=== PATIENT | male | born 1940 | race Caucasian/White ===

== ENCOUNTER 2018-04-22 13:12 | Inpatient (IN) | payer MEDICARE ==
[2018-04-21 09:43] VITALS: BMI 27.2
[~2018-04-22 13:12] MED LIST: DEXAMETHASONE SOD PHOSPHATE 10 MG/ML 1 ML VIAL IV ONE; LIDOCAINE 1% 20 ML VIAL (10MG/ML) FOR IV START INTRADERMA PRN; MIDAZOLAM 2 MG/2 ML VIAL IV PRN; ONDANSETRON 4 MG/2 ML VIAL IVP ONE; SODIUM CHLORIDE 0.9% 1,000 ML in EMPTY BAG 1 BAG IV ONE; ceFAZolin IN SWFI 2 GM/20 ML SYRINGE IVP ONE; fentaNYL (PF) 50 MCG/ML 2 ML AMP IV PRN
[2018-04-22 14:04] LABS: Glucose,Whole Blood 115 mg/dL (75-99)
[2018-04-22 14:15] LABS: Basophils % (A) 0 %; Eosinophils # (A) 0.2 k/uL (0-0.7); Eosinophils % (A) 4 %; HCT 42.1 % (39.0-53.0); HGB 14.3 gm/dL (13.0-17.5); Lymphocytes # (A) 1.1 k/uL (1.0-4.8); Lymphocytes % (A) 17 %; MCH 30.9 pg (25.0-35.0); MCHC 33.9 g/dL (31.0-37.0); MCV 91.2 fL (80.0-100.0); Mean Platelet Volume 6.5; Monocytes # (A) 0.5 k/uL (0-1.0); Monocytes % (A) 7 %; Neutrophils # (A) 4.5 k/uL (1.3-7.7); Neutrophils % (A) 70 %; Platelet Count 234 k/uL (150-450); RBC 4.62 m/uL (4.30-5.90); RDW 13.1 % (11.5-15.5); WBC 6.5 k/uL (3.8-10.6)
[2018-04-22 14:29] LABS: Anion Gap 9 mmol/L; Blood Urea Nitrogen 12 mg/dL (9-20); Calcium 9.2 mg/dL (8.4-10.2); Carbon Dioxide 24 mmol/L (22-30); Chloride 102 mmol/L (98-107); Glucose 112 mg/dL (74-99); Potassium 4.1 mmol/L (3.5-5.1); Sodium 135 mmol/L (137-145)
[2018-04-22] MEDS ORDERED: PROTAMINE SULFATE 10 MG/ML 5 ML VIAL IV ONE (14:42)
[2018-04-22] MEDS ORDERED: MIDAZOLAM 2 MG/2 ML VIAL ONE (14:42)
[2018-04-22] MEDS ORDERED: VECURONIUM 10 MG VIAL IV ONE (14:42)
[2018-04-22] MEDS ORDERED: LIDOCAINE 1% INJ 10MG/ML (20 ML MDV) ONE (14:42)
[2018-04-22] MEDS ORDERED: fentaNYL (PF) 50 MCG/ML 2 ML AMP ONE (14:42)
[2018-04-22] MEDS ORDERED: PROPOFOL 10 MG/ML 20 ML VIAL IV ONE (14:42)
[2018-04-22] MEDS ORDERED: NEOSTIGMINE 1 MG/ML 10 ML VIAL ONE (14:42)
[2018-04-22] MEDS ORDERED: SUCCINYLCHOLINE CHLORIDE 100 MG/5 ML SYR IV ONE (14:42)
[2018-04-22] MEDS ORDERED: GLYCOPYRROLATE 0.2 MG/ML 2 ML VIAL ONE (14:42)
--- NOTE | 2018-04-22 14:51 | P.GSHP ---
History of Present Illness H&P Date: 04/22/18 Chief Complaint: AAA 77-year-old gentleman who originally presented to the office secondary to increased size in his in for renal abdominal aortic aneurysm to greater than 5-1 /2 cm. He presents today for endovascular aortic repair. He denies any abdominal pain, back pain, lower extremity discomfort with ambulation or at rest , fevers, chills, chest pain or shortness of breath. - Review of Systems All systems: negative Past Medical History Past Medical History: Cancer, Diabetes Mellitus, Hyperlipidemia, Hypertension, Prostate Disorder Additional Past Medical History / Comment(s): hx colon cancer, abdominal aortic aneursym History of Any Multi-Drug Resistant Organisms: None Reported Past Surgical History: Bowel Resection Additional Past Surgical History / Comment(s): bowel resection for bowel cancer , eye surgery for macular hole, rt eye cataract surgery Past Anesthesia/Blood Transfusion Reactions: No Reported Reaction Smoking Status: Former smoker - Past Family History Mother Family Medical History: No Reported History Medications and Allergies Home Medications Medication Instructions Recorded Confirmed Type Aspirin [Adult Low Dose Aspirin EC] 81 mg PO DAILY 04/21/18 04/22/18 History Cyanocobalamin (Vitamin B-12) 1,500 mcg PO DAILY 04/21/18 04/22/18 History [Vitamin B-12] Ferrous Sulfate [Feosol] 325 mg PO DAILY 04/21/18 04/22/18 History Lisinopril [Zestril] 10 mg PO DAILY 04/21/18 04/22/18 History Magnesium With Zinc 1 tab PO DAILY 04/21/18 04/22/18 History Metoprolol Succinate [Toprol Xl] 50 mg PO DAILY 04/21/18 04/22/18 History Multivitamins, Thera [Multivitamin 1 tab PO DAILY 04/21/18 04/22/18 History (formulary)] [place]-3 Fatty Acids [[place]-3] 1,000 mg PO DAILY 04/21/18 04/22/18 History Simvastatin [Zocor] 20 mg PO HS 04/21/18 04/22/18 History Tamsulosin HCl [Flomax] 0.4 mg PO DAILY 04/21/18 04/22/18 History metFORMIN HCL 1,000 mg PO BID 04/21/18 04/22/18 History Allergies Allergy/AdvReac Type Severity Reaction Status Date / Time No Known Allergies Allergy Verified 04/21/18 09:29 Surgical - Exam Vital Signs Temp Pulse Resp BP Pulse Ox 98.0 F 63 18 194/89 95 04/22/18 13:45 04/22/18 13:45 04/22/18 13:45 04/22/18 13:45 04/22/18 13:45 Multiphasic signal DP and PT. Palpable femoral pulses bilaterally. - General well developed, well nourished, no distress - ENT normal pinna, normal nares, normal mucosa - Neck trachea midline - Respiratory normal expansion, normal respiratory effort - Cardiovascular Rhythm: regular - Abdomen Abdomen: soft, non tender - Genitourinary normal penis with no external lesions - Integumentary no rash, no growths - Neurologic normal coordination, normal sensation - Psychiatric oriented to time, oriented to person, oriented to place Results - Labs 04/22/18 13:50 04/22/18 13:50 Abnormal Lab Results - Last 24 Hours (Table) 04/22/18 04/22/18 Range/Units 13:49 13:50 Sodium 135 L (137-145) mmol/L Glucose 112 H (74-99) mg/dL POC Glucose (mg/dL) 115 H (75-99) mg/dL Diabetes panel 04/22/18 Range/Units 13:50 Sodium 135 L (137-145) mmol/L Potassium 4.1 (3.5-5.1) mmol/L Chloride 102 (98-107) mmol/L Carbon Dioxide 24 (22-30) mmol/L BUN 12 (9-20) mg/dL Creatinine 0.86 (0.66-1.25) mg/dL Glucose 112 H (74-99) mg/dL Calcium 9.2 (8.4-10.2) mg/dL Calcium panel 04/22/18 Range/Units 13:50 Calcium 9.2 (8.4-10.2) mg/dL Pituitary panel 04/22/18 Range/Units 13:50 Sodium 135 L (137-145) mmol/L Potassium 4.1 (3.5-5.1) mmol/L Chloride 102 (98-107) mmol/L Carbon Dioxide 24 (22-30) mmol/L BUN 12 (9-20) mg/dL Creatinine 0.86 (0.66-1.25) mg/dL Glucose 112 H (74-99) mg/dL Calcium 9.2 (8.4-10.2) mg/dL Adrenal panel 04/22/18 Range/Units 13:50 Sodium 135 L (137-145) mmol/L Potassium 4.1 (3.5-5.1) mmol/L Chloride 102 (98-107) mmol/L Carbon Dioxide 24 (22-30) mmol/L BUN 12 (9-20) mg/dL Creatinine 0.86 (0.66-1.25) mg/dL Glucose 112 H (74-99) mg/dL Calcium 9.2 (8.4-10.2) mg/dL Assessment and Plan (1) AAA (abdominal aortic aneurysm) without rupture Current Visit: Yes Status: Acute Priority: High Code(s): I71.4 - ABDOMINAL AORTIC ANEURYSM, WITHOUT RUPTURE SNOMED Code(s): 94031887 Plan: To the OR for endovascular aortic repair.
[2018-04-22] MEDS ORDERED: IOPAMIDOL-250 100ML BTL INTRAARTER ONE ×5 (16:43)
[2018-04-22] MEDS: SODIUM CHLORIDE 0.9% 1,000 ML IV SCH (17:18)
--- NOTE | 2018-04-22 17:19 | P.OP ---
Date of Procedure: 04/22/18 Preoperative Diagnosis: AAA Postoperative Diagnosis: Same Procedure(s) Performed: Endovascular aortic repair with ovation iX device Implants: Ovation iX 26 mm main body Ovation 22 x 120 mm left iliac limb Ovation 18 x 120 mm right iliac limb Anesthesia: CHAUA Surgeon: Choco Tijerina Estimated Blood Loss (ml): 50 IV fluids (ml): 900 Urine output (ml): 250 Pathology: none sent Condition: stable Disposition: PACU Indications for Procedure: 77-year-old gentleman with an abdominal aortic aneurysm which has increased to 5.7 cm presents for endovascular aortic repair. Description of Procedure: After written informed consent was obtained the patient all risks benefits competitions were described the patient is brought to the cathodic protection technician and laid in a supine position. The area of the groins were prepped and draped in usual sterile fashion after appropriate anesthetic was performed per the anesthesiologist. A timeout was performed in normal fashion antibiotics were administered prior to incision. Ultrasound was utilized to cannulate the common femoral artery bilaterally and Perclose closure devices were placed in normal fashion 2 for each groin. Once closure devices were placed 8-[place] sheaths were placed utilizing Seldinger technique and patient was administered heparin and followed with serial ACTs.. 035 Glidewire was then placed in bilateral sheaths into the aortic body. The right Glidewire was exchanged for a stiff 035 Lunderquist wire. A pigtail catheter was placed up the left femoral sheath. A 26 mm ovation aortic body delivery system was then guided over the guidewire on the right common femoral artery after the sheath was removed. This was advanced to the radiopaque markers were approximately 1 cm beneath the renal arteries which were located approximately L2 vertebrae. Aortogram was then obtained demonstrating the landing zone just distal to the renal arteries. Aortic body was then deployed in normal fashion under direct visualization of fluoroscopy. Once the suprarenal fixation was in place the polymer was injected under direct visualization of fluoroscopy. Pigtail catheter was withdrawn as well as the stiff wire. Attention was then placed to the contralateral gate. The gate was cannulated with 035 Glidewire and angled glide catheter and confirmed with a pigtail catheter spinning within the aortic body. An 035 Amplatz wire was then placed through the pigtail catheter and measurements were obtained on the contralateral limb with a retrograde angiogram. A 22 x 120 mm ovation iliac limb was chosen and deployed in normal fashion. Once completed a 10 x 40 mm balloon was guided over the guidewire within the iliac limb to balloon the overlap. The polymer was allowed to harden for approximately 14 minutes at which time the main body was further deployed and the nosecone was recaptured in normal fashion. Once recaptured and delivery system was removed a Coda balloon was placed up the wire and balloon angioplasty was performed at the sealing rings. Coda balloon was then removed and replaced with detail catheter. Retrograde angiogram was obtained and measurements were obtained for the internal iliac artery on the right. A 18 x 120 mm ovation limb was chosen and deployed in normal fashion to the right iliac limb. Once deployed delivery system was removed and a 10 x 40 mm balloon was placed and the overlap bilaterally was angioplastied in a kissing fashion. Once completed pigtail catheter was once again placed after removal of the balloons an angiogram was obtained. Upon angiogram there was no type IA endoleak but a type IB endoleak was noted which seemed to be coming from the right iliac limb. At that time the Coda balloon was placed up the right limb and balloon angioplasty was performed throughout the entirety of the limb. Retrograde angiogram was obtained demonstrating decreased type IB endoleak and therefore balloon angioplasty was performed once again. Retrograde angiogram showed resolution of the endoleak and a pigtail catheter angiogram was then obtained. Upon this angiogram it was noted that there was a type IB endoleak on the left iliac limb and therefore the was placed in the left iliac limb and balloon angioplasty was performed over the overlap as well as distally. Retrograde gram was then obtained demonstrating no evidence of a type IB endoleak. Final angiogram was obtained through a pigtail catheter was demonstrated a type II endoleak but no evidence of type I or 3. All catheters and sheaths were then removed and Perclose closure devices were closed in normal fashion for hemostasis. Hemostasis was assured the area was then cleansed and dressings were placed. Patient was administered protamine at the conclusion of the case. Patient did have multiphasic signal at the PT and DP as well as palpable pulses at the popliteal which were stable from preoperative exam. Patient tolerated the procedure well and was sent to PACU for recovery
[2018-04-22 17:30] LABS: Glucose,Whole Blood 130 mg/dL (75-99)
[2018-04-22] MEDS ORDERED: ONDANSETRON 4 MG/2 ML VIAL IVP ONE (18:02)
[2018-04-22 20:25] LABS: Glucose,Whole Blood 124 mg/dL (75-99)
[2018-04-22] MEDS ORDERED: PRAVASTATIN SODIUM 40 MG TAB PO SCH (21:00)
[2018-04-22] MEDS: LACTATED RINGERS 1,000 ML IV SCH (22:05)
[2018-04-23] MEDS: SODIUM CHLORIDE 0.9% 1,000 ML IV SCH ×2 (01:27→13:25)
[2018-04-23 05:09] LABS: Basophils % (A) 0 %; Eosinophils # (A) 0.2 k/uL (0-0.7); Eosinophils % (A) 3 %; HCT 39.1 % (39.0-53.0); HGB 13.2 gm/dL (13.0-17.5); Lymphocytes # (A) 0.6 k/uL (1.0-4.8); Lymphocytes % (A) 9 %; MCH 31.2 pg (25.0-35.0); MCHC 33.8 g/dL (31.0-37.0); MCV 92.4 fL (80.0-100.0); Mean Platelet Volume 6.6; Monocytes # (A) 0.5 k/uL (0-1.0); Monocytes % (A) 7 %; Neutrophils # (A) 5.4 k/uL (1.3-7.7); Neutrophils % (A) 79 %; Platelet Count 197 k/uL (150-450); RBC 4.23 m/uL (4.30-5.90); RDW 13.1 % (11.5-15.5); WBC 6.8 k/uL (3.8-10.6)
[2018-04-23 05:17] LABS: ALT 31 U/L (21-72); AST 22 U/L (17-59); Albumin 3.4 g/dL (3.5-5.0); Alkaline Phosphatase 62 U/L (38-126); Anion Gap 7 mmol/L; Blood Urea Nitrogen 10 mg/dL (9-20); Calcium 8.6 mg/dL (8.4-10.2); Carbon Dioxide 25 mmol/L (22-30); Chloride 103 mmol/L (98-107); Glucose 152 mg/dL (74-99); Potassium 4.2 mmol/L (3.5-5.1); Sodium 135 mmol/L (137-145); Total Bilirubin 0.7 mg/dL (0.2-1.3); Total Protein 5.9 g/dL (6.3-8.2)
--- NOTE | 2018-04-23 07:20 | CONS ---
CONSULTATION REASON FOR CONSULTATION: Advice regarding diabetes mellitus and other medical issues requested by Dr. Tijerina. HISTORY OF PRESENT ILLNESS: This 77-year-old gentleman with a past medical history of multiple medical problems including diabetes mellitus, hypertension, hyperlipidemia, history of prostate disorder being followed by Dr. Dimitri Collins in the outpatient setting was admitted after endovascular aortic repair with Ovation iX device by Dr. Tijerina. The patient tolerated the procedure. Patient is being closely monitored in ICU. The blood sugar is also being closely monitored. There is no history of fever, rigors. No history of headache, loss of consciousness or seizures. PAST MEDICAL HISTORY: History of diabetes, hypertension, hyperlipidemia, history of prostate disorder, history of abdominal aortic aneurysm. MEDICATIONS: Medications prior to admission include: 1. Metformin 1000 mg p.o. b.i.d. 2. Flomax 0.4 daily. 3. Zocor 20 mg at bedtime. 4. [place]-3, 1000 daily. 5. Multivitamin 1 p.o. daily. 6. Metoprolol 50 mg p.o. daily. 7. Magnesium with zinc 1 tablet p.o. daily. 8. Zestril 10 mg p.o. daily. 9. Iron sulfate 325 mg p.o. daily. 10.Vitamin B-12, 1500 mcg p.o. daily. 11.Aspirin 81 mg p.o. daily. ALLERGIES: Allergies are none. FAMILY HISTORY: No history of heart disease or strokes in the family. SOCIAL HISTORY: Previous history of smoking. Occasional alcohol intake. REVIEW OF SYSTEMS: ENT: No diminished hearing or diminished vision. CARDIOVASCULAR SYSTEM: No angina. RESPIRATORY SYSTEM: No cough. GI: No nausea. : No dysuria. NERVOUS SYSTEM: No numbness or weakness. ALLERGY/IMMUNOLOGIC: No history of asthma or hayfever. MUSCULOSKELETAL: As mentioned earlier. HEMATOLOGY/ONCOLOGY: No history of anemia. ENDOCRINE: Diabetes mellitus. CONSTITUTIONAL: As mentioned earlier. DERMATOLOGY: Negative. RHEUMATOLOGY: Negative. PSYCHIATRY: As mentioned earlier. PHYSICAL EXAMINATION: The patient is alert and oriented x3. Pulse is 58, blood pressure 136/65, respiration 17, temperature normal, pulse ox 94% on room air. HEENT: Conjunctivae normal. Oral mucosa moist. NECK: No jugular venous distention. No carotid bruit. No lymph node enlargement. CARDIOVASCULAR: S1 and S2, muffled. No S3 or S4. RESPIRATORY: Breath sounds diminished in the bases. No rhonchi, no crackles. ABDOMEN: Soft, nontender. No mass palpable. LEGS: No edema, no swelling. NERVOUS SYSTEM: Higher functions as mentioned earlier. Moves all 4 limbs. No focal deficits LYMPHATICS: No lymphadenopathy of the neck, axillae or groin. SKIN: No ulcer, rash or bleeding. LAB INVESTIGATIONS: CBC within normal limits. Sodium 135. Accu-Cheks 115, 130, 124. ASSESSMENT: 1. Status post endovascular aortic repair for abdominal aortic aneurysm. 2. Diabetes mellitus type 2. 3. Hypertension. 4. Hyperlipidemia. 5. History of prostate cancer. 6. History of colon cancer. 7. History of anxiety. 8. Remote history of nicotine dependence. RECOMMENDATIONS AND DISCUSSION: This 77-year-old gentleman who presented after surgery. At this time I recommend to continue current medications, continue symptomatic treatment. Accu-Cheks a.c. and at bedtime. NovoLog scale. Resume the home medications. Monitor blood pressure and blood sugar closely. Will follow the patient closely. Incentive spirometry, DVT prophylaxis. The patient may be asked to follow with the primary physician closely after discharge. Thank you Dr. Tijerina for letting us participate in the care of this patient. MMODL / IJN: [id number] /
[2018-04-23 07:21] LABS: Glucose,Whole Blood 137 mg/dL (75-99)
[2018-04-23] MEDS: INSULIN ASPART 100 UNIT/ML 1 ML 10 ML VIAL SQ SCH ×2 (08:01→13:05)
[2018-04-23 08:04] VITALS: TEMP 98.7
[2018-04-23] MEDS ORDERED: METOPROLOL SUCCINATE (ER) 50 MG TAB.ER.24H PO SCH (09:00)
[2018-04-23] MEDS ORDERED: ASPIRIN 81 MG PO SCH (09:00)
[2018-04-23] MEDS ORDERED: TAMSULOSIN 0.4 MG CAP.ER.24H PO SCH (09:00)
[2018-04-23] MEDS ORDERED: LISINOPRIL 10 MG TAB PO SCH (09:00)
--- NOTE | 2018-04-23 09:55 | IR ---
EXAMINATION TYPE: IR well logging captain aorta DATE OF EXAM: 04/22/2018 COMPARISON: NONE HISTORY: Aortic aneurysm Fluoroscopy support supplied to the referring clinician. See dictated report from vascular surgery, 481 intraoperative C-arm images, 21.4 minutes fluoroscopy
--- NOTE | 2018-04-23 10:01 | P.CNPUL ---
History of Present Illness Consult date: 04/23/18 Requesting physician: Choco Tijerina Reason for consult: other (critical care) Chief complaint: AAA repair History of present illness: This is a 77-year-old male patient being seen examined and evaluated today in the intensive care unit for consultation. This patient did undergo endovascular aortic repair with ovation iX device performed by Dr. Tijerina yesterday. He did stay overnight in the intensive care unit for close observation post repair. His abdominal aortic aneurysm was greater than 5-1/2 cm. Please see surgical note for operative details. The patient has been hemodynamically stable while in the intensive care unit. Today is postop day 1 and the patient has been tolerating his food and fluids. He is on room air. He does have 2 bilateral groin dressing sites, left groin is clean dry and intact, right groin dressing had some scant shadowing that is unchanged since arrival to the ICU. There are no hematomas. Patient has good bilateral pulses in his lower extremities. The patient has been up ambulating in the intensive care unit with nursing staff. He denies any shortness breath cough or congestion. He denies any nausea vomiting diarrhea or constipation. He denies any significant post operative pain. Review of Systems 14 point review of systems was completed and is negative unless noted above in the HPI Past Medical History Past Medical History: Cancer, Diabetes Mellitus, Hyperlipidemia, Hypertension, Prostate Disorder Additional Past Medical History / Comment(s): hx colon cancer, abdominal aortic aneursym History of Any Multi-Drug Resistant Organisms: None Reported Past Surgical History: Bowel Resection Additional Past Surgical History / Comment(s): bowel resection for bowel cancer , eye surgery for macular hole, rt eye cataract surgery Past Anesthesia/Blood Transfusion Reactions: No Reported Reaction Smoking Status: Former smoker (1/2 ppd for approximately 20 years. Quit smoking over 20 years ago) Additional History: retired- worked for the local [employer] - Past Family History Mother Family Medical History: No Reported History Medications and Allergies Home Medications Medication Instructions Recorded Confirmed Type Aspirin [Adult Low Dose Aspirin EC] 81 mg PO DAILY 04/21/18 04/22/18 History Cyanocobalamin (Vitamin B-12) 1,500 mcg PO DAILY 04/21/18 04/22/18 History [Vitamin B-12] Ferrous Sulfate [Feosol] 325 mg PO DAILY 04/21/18 04/22/18 History Lisinopril [Zestril] 10 mg PO DAILY 04/21/18 04/22/18 History Magnesium With Zinc 1 tab PO DAILY 04/21/18 04/22/18 History Metoprolol Succinate [Toprol Xl] 50 mg PO DAILY 04/21/18 04/22/18 History Multivitamins, Thera [Multivitamin 1 tab PO DAILY 04/21/18 04/22/18 History (formulary)] [place]-3 Fatty Acids [[place]-3] 1,000 mg PO DAILY 04/21/18 04/22/18 History Simvastatin [Zocor] 20 mg PO HS 04/21/18 04/22/18 History Tamsulosin HCl [Flomax] 0.4 mg PO DAILY 04/21/18 04/22/18 History metFORMIN HCL 1,000 mg PO BID 04/21/18 04/22/18 History Allergies Allergy/AdvReac Type Severity Reaction Status Date / Time No Known Allergies Allergy Verified 04/21/18 09:29 Physical Exam Vitals: Vital Signs Temp Pulse Pulse Resp BP BP BP 04/23/18 09:00 62 26 H 134/72 04/23/18 08:00 98.7 F 69 20 145/69 04/23/18 07:00 70 26 H 129/64 04/23/18 06:00 70 22 142/68 04/23/18 05:00 66 18 133/58 04/23/18 04:00 98.1 F 58 L 59 L 21 119/57 04/23/18 03:00 65 14 138/65 04/23/18 02:00 61 18 135/62 04/23/18 01:00 53 L 21 116/56 04/23/18 00:00 98.0 F 60 20 138/54 04/22/18 23:04 55 L 13 136/65 04/22/18 23:00 58 L 17 136/65 04/22/18 22:30 58 L 18 163/81 04/22/18 22:00 57 L 22 139/73 04/22/18 21:50 57 L 23 139/73 04/22/18 21:40 58 L 15 139/69 04/22/18 21:30 62 19 139/69 04/22/18 21:20 58 L 14 139/69 04/22/18 21:10 62 17 147/68 04/22/18 21:00 59 L 14 147/68 04/22/18 20:50 64 17 147/68 04/22/18 20:45 97.7 F 59 L 16 139/69 04/22/18 20:40 60 16 156/73 04/22/18 20:30 97.7 F 60 50 L 20 156/73 04/22/18 20:20 62 04/22/18 19:25 54 L 18 143/70 04/22/18 18:55 46 L 18 142/69 04/22/18 18:47 50 L 18 147/68 04/22/18 18:29 48 L 18 157/72 04/22/18 18:10 52 L 16 149/65 04/22/18 18:07 57 L 12 145/60 04/22/18 18:00 55 L 12 158/70 04/22/18 17:45 56 L 12 151/70 04/22/18 17:30 57 L 12 150/71 04/22/18 17:12 97.2 F L 58 L 12 153/82 04/22/18 13:45 98.0 F 63 18 161/87 194/89 Pulse Ox 04/23/18 09:00 94 L 04/23/18 08:00 95 04/23/18 07:00 92 L 04/23/18 06:00 93 L 04/23/18 05:00 95 04/23/18 04:00 93 L 04/23/18 03:00 92 L 04/23/18 02:00 95 04/23/18 01:00 94 L 04/23/18 00:00 93 L 04/22/18 23:04 94 L 04/22/18 23:00 94 L 04/22/18 22:30 94 L 04/22/18 22:00 95 04/22/18 21:50 97 04/22/18 21:40 97 04/22/18 21:30 97 04/22/18 21:20 94 L 04/22/18 21:10 96 04/22/18 21:00 97 04/22/18 20:50 96 04/22/18 20:45 97 04/22/18 20:40 97 04/22/18 20:30 96 04/22/18 20:20 04/22/18 19:25 96 04/22/18 18:55 97 04/22/18 18:47 97 04/22/18 18:29 04/22/18 18:10 94 L 04/22/18 18:07 96 04/22/18 18:00 96 04/22/18 17:45 97 04/22/18 17:30 97 04/22/18 17:12 96 04/22/18 13:45 95 Intake and Output 04/22/18 04/23/18 04/23/18 22:59 06:59 14:59 Intake Total 450 1040 200 Output Total 775 975 400 Balance -325 65 -200 Intake: IV 350 800 200 Sodium Chloride 0.9% 1, 200 800 200 000 ml @ 100 mls/hr IV . Q10H [facility] Rx#:[id number] Oral 100 240 Output: Urine 775 975 400 Other: Voiding Method Indwelling Catheter Indwelling Catheter Weight 90.1 kg GENERAL EXAM: Alert, active, comfortable in no apparent distress. HEAD: Normocephalic. EYES: Normal reaction of pupils, equal size. NOSE: Clear with pink turbinates. THROAT: No erythema or exudates. NECK: No masses, no JVD. CHEST: No chest wall deformity. LUNGS: Equal air entry with no crackles, wheeze, rhonchi or dullness. CVS: S1 and S2 normal with no audible mumurs, regular rhythm. ABDOMEN: No hepatosplenomegaly, normal bowel sounds, no guarding or rigidity. EXTREMITIES: No edema noted, pedal pulses palpable. SKIN: left groin dressing site C,D,I. right groin dressing site has some scant shawdowing, unchanged. CENTRAL NERVOUS SYSTEM: No focal deficits, tone is normal in all 4 extremities. Results - Laboratory Findings CBC and BMP: 04/23/18 04:51 04/23/18 04:51 Abnormal lab findings: Abnormal Labs 04/22/18 04/22/18 04/22/18 13:49 13:50 17:27 RBC Lymphocytes # Sodium 135 L Glucose 112 H POC Glucose (mg/dL) 115 H 130 H Total Protein Albumin 04/22/18 04/23/18 04/23/18 20:22 04:51 04:51 RBC 4.23 L Lymphocytes # 0.6 L Sodium 135 L Glucose 152 H POC Glucose (mg/dL) 124 H Total Protein 5.9 L Albumin 3.4 L 04/23/18 07:20 RBC Lymphocytes # Sodium Glucose POC Glucose (mg/dL) 137 H Total Protein Albumin Assessment and Plan Assessment: Assessment Status post endovascular aortic repair for his abdominal aortic aneurysm Diabetes mellitus type 2 Hypertension Hyperlipidemia History of colon cancer History of prostate cancer Plan Patient could be discharged home once cleared by vascular surgery Patient has been hemodynamically stable Medications have been reviewed and will be continued as ordered. Accu-Cheks, blood sugar control Continue with pulmonary hygiene, coughing and deep breathing exercises, and supportive care. Supplemental oxygen to maintain oxygen saturations of 92% or better, if needed. Initiate and encourage incentive spirometer Increase activity as tolerated Postop instructions per vascular surgery GI and DVT prophylaxis. We will continue to monitor labs/results and adjust treatment as necessary. Thank you for this consultation we will continue to follow this patient with you I performed an examination of the patient and discussed their management with the nurse practitioner. I have reviewed the nurse practitioner's note and agree with the documented findings and plan of care.
[2018-04-23 11:06] VITALS: BP 107/54
--- NOTE | 2018-04-23 12:32 | PN ---
PROGRESS NOTE DATE OF SERVICE: 04/23/2018 This 77-year-old gentleman who was admitted after endovascular aortic repair of the aortic aneurysm is improving significantly. No chest pain or palpitation. No fever. PHYSICAL EXAMINATION: On exam, alert and oriented x3. Pulse is 69, blood pressure 107/54, respiration 19, temperature 98.7, pulse ox 92% on room air. HEENT: Conjunctivae normal. NECK: No jugular venous distention. CARDIOVASCULAR: S1 and S2 muffled. RESPIRATORY: Breath sounds diminished in the bases. A few scattered rhonchi. No crackles. ABDOMEN: Soft, nontender. No mass palpable. LEGS: No edema, no swelling. NERVOUS SYSTEM: No focal deficits. LABS: CBC within normal. Sodium 135. ASSESSMENT: 1. Status post endovascular repair of the abdominal aortic aneurysm. 2. Diabetes mellitus type 2. 3. Hypertension. 4. Hyperlipidemia. 5. History of prostate cancer. 6. History of colon cancer. 7. History of anxiety. 8. Remote history of nicotine dependence. RECOMMENDATIONS AND DISCUSSION: Recommend to continue current medications, continue monitoring and symptomatic treatment. Otherwise, at this time I recommend resume the home medications and closely follow with primary physician after discharge. The rest of the recommendations per Vascular Surgery. Further recommendations to follow. MMODL / IJN: [id number] /
[2018-04-23 12:33] LABS: Glucose,Whole Blood 122 mg/dL (75-99)
[2018-04-23 14:56] VITALS: PULSE 58; RESP 20
[2018-04-23 15:09] LABS: Hemoglobin A1C 7.2 % (4.0-6.0)
--- NOTE | 2018-04-23 16:32 | DS ---
DISCHARGE SUMMARY PREOPERATIVE DIAGNOSES: 1. Infrarenal abdominal aortic aneurysm. 2. Hypertension. 3. Diabetes. OPERATION: Infrarenal aortic stent graft. HOSPITAL COURSE: This patient has history of abdominal aortic aneurysm. The patient went for aortic stent graft by Dr. Jhony Tijerina. Today is postop day 1. His vital signs stable. Normal sinus rhythm. Incision in the groin is healing. No discharge or redness noted. The patient tolerating activities well. PLAN: Patient will go home today. Will follow in office in 2 weeks. Continue with home medication. MMODL / IJN: [id number] /
[2018-04-23] MEDS ORDERED: ATORVASTATIN 10 MG TAB PO SCH (21:00)
[2018-04-24] MEDS ORDERED: metFORMIN 500 MG TAB PO SCH (21:00)
== END 2018-04-23 16:47 | disposition home or self-care (01) | DRG 269 ==
LOC: 2ORMAIN 13:12 → 6ICU 20:04
PROVIDERS: ADMIT Surgery; ATTEND Surgery
PROC: 04V03DZ Restriction of Abdominal Aorta with Intraluminal Device, Percutaneous Approach (ICD-10-PCS; principal; 2018-04-22 15:15)
DX: I71.4 Abdominal aortic aneurysm, without rupture (principal); E11.9 Type 2 diabetes mellitus without complications; E78.5 Hyperlipidemia, unspecified; I10 Essential (primary) hypertension; Z79.82 Long term (current) use of aspirin; Z85.038 Personal history of other malignant neoplasm of large intestine; Z85.46 Personal history of malignant neoplasm of prostate; Z86.79 Personal history of other diseases of the circulatory system; Z87.891 Personal history of nicotine dependence; Z79.899 Other long term (current) drug therapy; Z79.84 Long term (current) use of oral hypoglycemic drugs
CPT/HCPCS: 34705; 80048; 80053; 83036; 85025; 85347; 86850; 86900; 86901

== ENCOUNTER 2020-05-02 21:21 | Emergency (ER) | payer MEDICARE ==
[2020-05-02 21:33] VITALS: TEMP 98.9
--- NOTE | 2020-05-02 22:11 | ED ---
General Adult HPI - General Chief complaint: Recheck/Abnormal Lab/Rx Stated complaint: Leaking aorta Time Seen by Provider: 05/02/20 21:55 Source: patient, EMS Mode of arrival: EMS Limitations: no limitations - History of Present Illness Initial comments: This patient is a 79-year-old man who arrives here as a transfer. The patient states that he had gone for computed tomography scan of the abdomen pelvis around 8:30 this morning as part of workup of suspected malignancy. He states that he received a phone call on this afternoon and was instructed to go to the emergency department as the CT showed a suspected leak of his abdominal aorta. The patient states that approximately 3 years ago he had repair of AAA by Dr. Tijerina. Patient states that he is not having any abdominal pain currently. He states that over the past couple weeks she felt like he may have pulled a muscle in the suprapubic area and also has been having some intermittent low back pains, but currently no pain. Patient denies weakness or numbness of the legs. -: hour(s) Severity scale (1-10): 0 Consistency: intermittent Improves with: none Worsens with: none Associated Symptoms: denies other symptoms Treatments Prior to Arrival: none - Related Data Home Medications Medication Instructions Recorded Confirmed Aspirin [Adult Low Dose Aspirin EC] 81 mg PO DAILY 04/21/18 04/22/18 Cyanocobalamin (Vitamin B-12) 1,500 mcg PO DAILY 04/21/18 04/22/18 [Vitamin B-12] Ferrous Sulfate [Feosol] 325 mg PO DAILY 04/21/18 04/22/18 Magnesium With Zinc 1 tab PO DAILY 04/21/18 04/22/18 Metoprolol Succinate [Toprol Xl] 50 mg PO DAILY 04/21/18 04/22/18 Multivitamins, Thera [Multivitamin 1 tab PO DAILY 04/21/18 04/22/18 (formulary)] [place]-3 Fatty Acids [[place]-3] 1,000 mg PO DAILY 04/21/18 04/22/18 Simvastatin [Zocor] 20 mg PO HS 04/21/18 04/22/18 Tamsulosin HCl [Flomax] 0.4 mg PO DAILY 04/21/18 04/22/18 lisinopriL [Zestril] 10 mg PO DAILY 04/21/18 04/22/18 metFORMIN HCL 1,000 mg PO BID 04/21/18 04/22/18 Allergies Allergy/AdvReac Type Severity Reaction Status Date / Time No Known Allergies Allergy Verified 04/21/18 09:29 Review of Systems ROS Statement: Those systems with pertinent positive or pertinent negative responses have been documented in the HPI. ROS Other: All systems not noted in ROS Statement are negative. Constitutional: Denies: fever, chills Respiratory: Denies: cough, dyspnea Cardiovascular: Denies: chest pain, palpitations, edema Gastrointestinal: Reports: as per HPI, abdominal pain. Denies: nausea, vomiti ng, diarrhea, constipation, melena, hematochezia Genitourinary: Denies: urgency, dysuria, frequency Musculoskeletal: Reports: as per HPI, back pain Skin: Denies: rash Neurological: Denies: headache, weakness, numbness, paresthesias Hematological/Lymphatic: Denies: easy bleeding Past Medical History Past Medical History: Cancer, Diabetes Mellitus, Hyperlipidemia, Hypertension, Prostate Disorder Additional Past Medical History / Comment(s): hx colon cancer, bladder cancer, abdominal aortic aneursym History of Any Multi-Drug Resistant Organisms: None Reported Past Surgical History: Bowel Resection Additional Past Surgical History / Comment(s): bowel resection for bowel cancer, eye surgery for macular hole, rt eye cataract surgery Past Anesthesia/Blood Transfusion Reactions: No Reported Reaction Past Psychological History: Anxiety Smoking Status: Former smoker Past Alcohol Use History: Occasional Past Drug Use History: None Reported - Past Family History Mother Family Medical History: No Reported History General Exam Limitations: no limitations General appearance: alert, in no apparent distress Head exam: Present: atraumatic, normocephalic Eye exam: Present: normal appearance. Absent: scleral icterus, conjunctival injection ENT exam: Present: normal oropharynx Respiratory exam: Present: normal lung sounds bilaterally. Absent: respiratory distress, wheezes, rales, rhonchi, stridor Cardiovascular Exam: Present: regular rate, normal rhythm, systolic murmur. Absent: diastolic murmur, rubs, gallop GI/Abdominal exam: Present: soft. Absent: distended, tenderness, guarding, rebound, rigid, mass Extremities exam: Present: normal inspection, normal capillary refill. Absent: pedal edema, calf tenderness Back exam: Present: normal inspection. Absent: CVA tenderness (R), CVA tenderness (L) Neurological exam: Present: alert. Absent: motor sensory deficit Skin exam: Present: warm, dry, intact, normal color. Absent: rash Course Vital Signs 05/02/20 05/02/20 05/02/20 21:25 21:35 22:17 Temperature 98.9 F Pulse Rate 75 71 Pulse Rate [ 75 Heart Coordinator ] Respiratory 20 16 Rate Blood Pressure 184/77 173/83 O2 Sat by Pulse 95 Oximetry 05/02/20 22:54 Temperature Pulse Rate 73 Pulse Rate [ Heart Coordinator ] Respiratory 18 Rate Blood Pressure 166/79 O2 Sat by Pulse Oximetry Medical Decision Making - Medical Decision Making This patient is 79-year-old man transferred from outside hospital for suspected leak of his AAA. The CAT scan images are reviewed by Dr. Tijerina, he states that the aneurysm has apparently had some leakage and he requests the patient be transferred to [facility] for higher level of care. She states she anticip ates admitting tonight and then taken to the OR in the morning. I have discussed all of this with the patient and his and they're agreeable with transfer. I then discussed case with Dr. Bryant, in the emergency department at [facility] and patient be transferred there. Given the patient's hypertension will give IV beta ivana. - Lab Data Result diagrams: 05/02/20 22:11 05/02/20 22:11 Lab Results 05/02/20 05/02/20 05/02/20 Range/Units 22:11 22:11 22:11 WBC 9.7 (3.8-10.6) k/uL RBC 3.88 L (4.30-5.90) m/uL Hgb 11.0 L (13.0-17.5) gm/dL Hct 34.0 L (39.0-53.0) % MCV 87.6 (80.0-100.0) fL MCH 28.3 (25.0-35.0) pg MCHC 32.4 (31.0-37.0) g/dL RDW 14.2 (11.5-15.5) % Plt Count 251 (150-450) k/uL Neutrophils % 85 % Lymphocytes % 7 % Monocytes % 5 % Eosinophils % 2 % Basophils % 0 % Neutrophils # 8.3 H (1.3-7.7) k/uL Lymphocytes # 0.6 L (1.0-4.8) k/uL Monocytes # 0.5 (0-1.0) k/uL Eosinophils # 0.2 (0-0.7) k/uL Basophils # 0.0 (0-0.2) k/uL PT 10.2 (9.0-12.0) sec INR 1.0 (<1.2) APTT 22.1 (22.0-30.0) sec Sodium (137-145) mmol/L Potassium (3.5-5.1) mmol/L Chloride (98-107) mmol/L Carbon Dioxide (22-30) mmol/L Anion Gap mmol/L BUN (9-20) mg/dL Creatinine (0.66-1.25) mg/dL Est GFR (CKD-EPI)AfAm (>60 ml/min/1.73 sqM) Est GFR (CKD-EPI)NonAf (>60 ml/min/1.73 sqM) Glucose (74-99) mg/dL Plasma Lactic Acid Efrain (0.7-2.0) mmol/L Calcium (8.4-10.2) mg/dL Total Bilirubin (0.2-1.3) mg/dL AST (17-59) U/L ALT (4-49) U/L Alkaline Phosphatase (38-126) U/L Troponin I (0.000-0.034) ng/mL Total Protein (6.3-8.2) g/dL Albumin (3.5-5.0) g/dL Urine Color Light Yellow Urine Appearance Clear (Clear) Urine pH 6.5 (5.0-8.0) Ur Specific [place] 1.014 (1.001-1.035) Urine Protein Negative (Negative) Urine Glucose (UA) Negative (Negative) Urine Ketones Negative (Negative) Urine Blood Small H (Negative) Urine Nitrite Negative (Negative) Urine Bilirubin Negative (Negative) Urine Urobilinogen <2.0 (<2.0) mg/dL Ur Leukocyte Esterase Negative (Negative) Urine RBC 3 (0-5) /hpf Urine WBC <1 (0-5) /hpf Ur Squamous Epith Cells <1 (0-4) /hpf Blood Type Blood Type Recheck Bld Type Recheck Status Antibody Screen Spec Expiration Date 05/02/20 05/02/2020 Range/Units 22:11 22:11 22:11 WBC (3.8-10.6) k/uL RBC (4.30-5.90) m/uL Hgb (13.0-17.5) gm/dL Hct (39.0-53.0) % MCV (80.0-100.0) fL MCH (25.0-35.0) pg MCHC (31.0-37.0) g/dL RDW (11.5-15.5) % Plt Count (150-450) k/uL Neutrophils % % Lymphocytes % % Monocytes % % Eosinophils % % Basophils % % Neutrophils # (1.3-7.7) k/uL Lymphocytes # (1.0-4.8) k/uL Monocytes # (0-1.0) k/uL Eosinophils # (0-0.7) k/uL Basophils # (0-0.2) k/uL PT (9.0-12.0) sec INR (<1.2) APTT (22.0-30.0) sec Sodium 135 L (137-145) mmol/L Potassium 3.8 (3.5-5.1) mmol/L Chloride 102 (98-107) mmol/L Carbon Dioxide 25 (22-30) mmol/L Anion Gap 8 mmol/L BUN 19 (9-20) mg/dL Creatinine 0.95 (0.66-1.25) mg/dL Est GFR (CKD-EPI)AfAm 89 (>60 ml/min/1.73 sqM) Est GFR (CKD-EPI)NonAf 77 (>60 ml/min/1.73 sqM) Glucose 134 H (74-99) mg/dL Plasma Lactic Acid Efrain 1.0 (0.7-2.0) mmol/L Calcium 9.4 (8.4-10.2) mg/dL Total Bilirubin 0.6 (0.2-1.3) mg/dL AST 23 (17-59) U/L ALT 17 (4-49) U/L Alkaline Phosphatase 152 H (38-126) U/L Troponin I <0.012 (0.000-0.034) ng/mL Total Protein 7.4 (6.3-8.2) g/dL Albumin 3.6 (3.5-5.0) g/dL Urine Color Urine Appearance (Clear) Urine pH (5.0-8.0) Ur Specific [place] (1.001-1.035) Urine Protein (Negative) Urine Glucose (UA) (Negative) Urine Ketones (Negative) Urine Blood (Negative) Urine Nitrite (Negative) Urine Bilirubin (Negative) Urine Urobilinogen (<2.0) mg/dL Ur Leukocyte Esterase (Negative) Urine RBC (0-5) /hpf Urine WBC (0-5) /hpf Ur Squamous Epith Cells (0-4) /hpf Blood Type Blood Type Recheck Bld Type Recheck Status Antibody Screen Spec Expiration Date 05/02/20 Range/Units 22:11 WBC (3.8-10.6) k/uL RBC (4.30-5.90) m/uL Hgb (13.0-17.5) gm/dL Hct (39.0-53.0) % MCV (80.0-100.0) fL MCH (25.0-35.0) pg MCHC (31.0-37.0) g/dL RDW (11.5-15.5) % Plt Count (150-450) k/uL Neutrophils % % Lymphocytes % % Monocytes % % Eosinophils % % Basophils % % Neutrophils # (1.3-7.7) k/uL Lymphocytes # (1.0-4.8) k/uL Monocytes # (0-1.0) k/uL Eosinophils # (0-0.7) k/uL Basophils # (0-0.2) k/uL PT (9.0-12.0) sec INR (<1.2) APTT (22.0-30.0) sec Sodium (137-145) mmol/L Potassium (3.5-5.1) mmol/L Chloride (98-107) mmol/L Carbon Dioxide (22-30) mmol/L Anion Gap mmol/L BUN (9-20) mg/dL Creatinine (0.66-1.25) mg/dL Est GFR (CKD-EPI)AfAm (>60 ml/min/1.73 sqM) Est GFR (CKD-EPI)NonAf (>60 ml/min/1.73 sqM) Glucose (74-99) mg/dL Plasma Lactic Acid [place] (0.7-2.0) mmol/L Calcium (8.4-10.2) mg/dL Total Bilirubin (0.2-1.3) mg/dL AST (17-59) U/L ALT (4-49) U/L Alkaline Phosphatase (38-126) U/L Troponin I (0.000-0.034) ng/mL Total Protein (6.3-8.2) g/dL Albumin (3.5-5.0) g/dL Urine Color Urine Appearance (Clear) Urine pH (5.0-8.0) Ur Specific [place] (1.001-1.035) Urine Protein (Negative) Urine Glucose (UA) (Negative) Urine Ketones (Negative) Urine Blood (Negative) Urine Nitrite (Negative) Urine Bilirubin (Negative) Urine Urobilinogen (<2.0) mg/dL Ur Leukocyte Esterase (Negative) Urine RBC (0-5) /hpf Urine WBC (0-5) /hpf Ur Squamous Epith Cells (0-4) /hpf Blood Type B Positive Blood Type Recheck B Pos Bld Type Recheck Status No Antibody Screen NEGATIVE Spec Expiration Date 05/05/2020 - 2310 Critical Care Time Critical Care Time: Yes (30 minutes) Disposition Clinical Impression: AAA (abdominal aortic aneurysm) Disposition: OTHER INSTITUTION NOT DEFINED Condition: Serious Is patient prescribed a controlled substance at d/c from ED?: No Referrals: Dimitri Collins MD [Primary Care Provider] - 1-2 days - Out of Hospital Transfer - Req. Specs Out of Hospital Transfer - Requested Specifics: Other Emergency Center
[2020-05-02 22:23] LABS: Basophils % (A) 0 %; Eosinophils # (A) 0.2 k/uL (0-0.7); Eosinophils % (A) 2 %; Lymphocytes # (A) 0.6 k/uL (1.0-4.8); Lymphocytes % (A) 7 %; MCH 28.3 pg (25.0-35.0); MCHC 32.4 g/dL (31.0-37.0); MCV 87.6 fL (80.0-100.0); Mean Platelet Volume 7.2; Monocytes # (A) 0.5 k/uL (0-1.0); Monocytes % (A) 5 %; Neutrophils # (A) 8.3 k/uL (1.3-7.7); Neutrophils % (A) 85 %; Platelet Count 251 k/uL (150-450); RBC 3.88 m/uL (4.30-5.90); RDW 14.2 % (11.5-15.5); WBC 9.7 k/uL (3.8-10.6)
[2020-05-02 22:25] LABS: Appearance,Urine Clear (Clear); Bilirubin,Urine Negative (Negative); Blood,Urine Small (Negative); Color,Urine Light Yellow; Glucose,Urine (UA) Negative (Negative); Ketones,Urine Negative (Negative); Leukocyte Esterase,Urine Negative (Negative); Nitrite,Urine Negative (Negative); PH, Urine 6.5 (5.0-8.0); Protein,Urine Negative (Negative); RBC,Urine 3 /hpf (0-5); Specific Gravity,Urine 1.014 (1.001-1.035); Squamous Epithelial Cell,Urine <1 /hpf (0-4); Urobilinogen,Urine <2.0 mg/dL (<2.0); WBC,Urine <1 /hpf (0-5)
[2020-05-02 22:32] LABS: Albumin 3.6 g/dL (3.5-5.0); Calcium 9.4 mg/dL (8.4-10.2); Potassium 3.8 mmol/L (3.5-5.1); Total Bilirubin 0.6 mg/dL (0.2-1.3); Total Protein 7.4 g/dL (6.3-8.2)
[2020-05-02 22:34] LABS: Partial Thromboplastin Time 22.1 sec (22.0-30.0); Prothrombin Time 10.2 sec (9.0-12.0)
[2020-05-02] MEDS ORDERED: LABETALOL 5 MG/ML VIAL MDV IVP STA (22:38)
[2020-05-02 22:55] VITALS: BP 166/79; PULSE 73; RESP 18
== END 2020-05-02 23:13 | disposition other institution (70) ==
LOC: EC 21:21
DX: I71.4 Abdominal aortic aneurysm, without rupture (principal); E11.9 Type 2 diabetes mellitus without complications; I10 Essential (primary) hypertension; E78.5 Hyperlipidemia, unspecified; Z79.82 Long term (current) use of aspirin; Z79.899 Other long term (current) drug therapy; Z79.84 Long term (current) use of oral hypoglycemic drugs; Z85.038 Personal history of other malignant neoplasm of large intestine; Z85.51 Personal history of malignant neoplasm of bladder; Z87.891 Personal history of nicotine dependence
CPT/HCPCS: 36415; 80053; 81001; 83605; 84484; 85025; 85610; 85730; 86850; 86900; 86901; 96374; 99284